=== PATIENT | male | born 1950 | race African-American/Black ===

== ENCOUNTER 2017-02-09 20:04 | Emergency (ER) | payer MEDICARE, OTHER ==
--- NOTE | ~2017-02-09 | CR20 ---
[facility] A Service of [facility] & [facility] RADIOLOGY TEXT RESULTS PATIENT: DANIEL MOCK LOCATION: [facility] : 49 UNIT #: [id number] AGE: [address]: Caitlin Correia MD SEX: M ORDER DR: [id number] [facility] [address] [facility]. [place], [place] [address] [id number] E MR#: [id number] Acc #: [id number] NAME: DANIEL MOCK : 1950 SEX: M STUDY DATE/TIME: 02/09/2017 21:28 UNIT: [facility] ROOM: STUDY DESCRIPTION: CR Ankle Min 3 Views Lt Attending Physician: Caitlin Correia M.D. Ordering Physician: Caitlin Correia M.D. Primary Care Physician: Ankush Castorena M.D. MEDICAL IMAGING REPORT This report is preliminary unless electronic signature is present EXAM Left ankle. DATE OF EXAM 02/09/2017 INDICATIONS Ankle pain since a fall today. FINDINGS 3 views of the left ankle were obtained. Arterial calcifications are noted in the soft tissues. Patient is osteopenic. There is some lateral soft tissue swelling. No acute fracture or malalignment is seen. The mortise is intact. IMPRESSION Osteopenia and atherosclerotic disease with some lateral soft tissue swelling. No acute fracture. Dictated by... Nicola Brice Jr., M.D. THIS IS AN ELECTRONICALLY VERIFIED REPORT Nicola Brice Jr., M.D. at 02/09/2017 11:06 PM TEMO/mohan TD: 02/09/2017 22:41 JOB #: [id number] MEDICAL IMAGING REPORT Page 1 of 1 COPY
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
--- NOTE | ~2017-02-09 | CT71 ---
[facility] A Service of [facility] RADIOLOGY TEXT RESULTS PATIENT: DANIEL MOCK LOCATION: [facility] : 49 UNIT #: [id number] AGE: [address]: Caitlin Correia MD SEX: M ORDER DR: [id number] [address] [address] [id number] E MR#: [id number] Acc #: [id number] NAME: DANIEL MOCK : 1950 SEX: M STUDY DATE/TIME: 02/09/2017 20:55 UNIT: [facility] ROOM: STUDY DESCRIPTION: CT Head Wo Contrast Attending Physician: Caitlin Correia M.D. Ordering Physician: Caitlin Correia M.D. Primary Care Physician: Ankush Castorena M.D. MEDICAL IMAGING REPORT This report is preliminary unless electronic signature is present EXAM Head CT. DATE OF EXAM 02/09/2017 INDICATIONS Head pain since last night after fall. History of hypertension and stroke. FINDINGS Axial images were obtained from base to vertex without contrast. COMPARISON Comparison made with 05/11/2014. TECHNIQUE This CT exam was performed with one or more of the following radiation dose reduction techniques: automatic exposure control, adjustment of mA and/or kV according to patient size, and iterative reconstruction. There is generalized atrophy. There is an old frontal white matter infarct on the right, and there are old right basal ganglia infarcts involving the caudate nucleus. Chronic small vessel ischemic changes are present in the white matter. There is no acute infarct or hemorrhage. There are no masses. No skull fracture. IMPRESSION No acute intracranial abnormality. No skull fractures. There are multiple right side old infarcts and there is generalized atrophy. Dictated by... Nicola Brice Jr., M.D. [facility] A Service of [facility] RADIOLOGY TEXT RESULTS PATIENT: DANIEL MOCK LOCATION: [facility] : 49 UNIT #: [id number] AGE: [address]: Caitlin Correia MD SEX: M ORDER DR: THIS IS AN ELECTRONICALLY VERIFIED REPORT Nicola Brice Jr., M.D. at 02/09/2017 11:06 PM TEMO/mohan TD: 02/09/2017 21:37 JOB #: [id number] MEDICAL IMAGING REPORT Page 1 of 1 COPY
--- NOTE | ~2017-02-09 | CR71 ---
[facility] A Service of [facility] & [facility] RADIOLOGY TEXT RESULTS PATIENT: DANIEL MOCK LOCATION: [facility] : 48 UNIT #: [id number] AGE: [address]: Caitlin Correia MD SEX: M ORDER DR: [id number] [facility] [address] [facility]. [place], [place] [address] [id number] E MR#: [id number] Acc #: [id number] NAME: DANIEL MOCK : 1950 SEX: M STUDY DATE/TIME: 02/09/2017 21:20 UNIT: [facility] ROOM: STUDY DESCRIPTION: CR Chest Single View Attending Physician: Caitlin Correia M.D. Ordering Physician: Caitlin Correia M.D. Primary Care Physician: Ankush Castorena M.D. MEDICAL IMAGING REPORT This report is preliminary unless electronic signature is present EXAM Portable chest. DATE OF EXAM 02/09/2017 HISTORY Shortness of breath, status post fall yesterday with chest pain and back pain left side. FINDINGS The cardiac and mediastinal structures are stable compared with 10/04/2016. Cardiac pacemaker is unchanged. Stable elevation of the right hemidiaphragm with atelectasis at the lung bases. There are no pleural effusions. No pneumothorax. IMPRESSION No active pulmonary disease. No change compared with 10/04/2016. Dictated by... Nasir Monteiro M.D. THIS IS AN ELECTRONICALLY VERIFIED REPORT Nasir Monteiro M.D. at 02/10/2017 2:21 PM Ravi TD: 02/09/2017 22:33 JOB #: [id number] MEDICAL IMAGING REPORT Page 1 of 1 COPY
[~2017-02-09 20:04] MED LIST: ALDACTONE PO; ALDACTONE25 MG PO; ALL DAY ALLERGY10 M2 PO; AMLODIPINE BESYL5 MG PO; ASPIRIN81 MG PO; BUMEX2 MG PO; CARVEDILOL25 MG PO; COUMADIN4 MG PO; COUMADIN5 MG PO; DESYREL150 M1 PO; ENTRESTO 24 MG1 EACH PO; FUROSEMIDE80 MG PO; GLUCOTROL10 MG PO; HYDROCODON-ACE1 EAC5 PO; NORVASC2.5 MG PO; PACERONE PO; PRILOSEC20 MG PO; PRINIVIL40 MG PO; SYNTHROID175 MCG PO; ZOCOR20 MG PO
[2017-02-09 20:25] LABS: BASOPHIL# 0.1 X10e3 (0-0.3); BASOPHIL% 0.8 % (0-2.5); EOSINOPHIL# 0.2 X10e3 (0-0.7); EOSINOPHIL% 2.3 % (0.0-7.0); HEMATOCRIT 35.6 % (38.0-50.0); HEMOGLOBIN 11.1 gm/dL (13.0-16.0); LYMPHOCYTE# 1.4 X10e3 (1.0-3.5); LYMPHOCYTE% 16.7 % (17.0-45.0); MEAN CELL VOLUME 69.9 FL (83-96); MEAN CORPUSCULAR HEMOGLOBIN 21.8 PG (28-34); MEAN CORPUSCULAR HGB CONC 31.1 g/dL (30-36); MEAN PLATELET VOLUME 8.4 FL (6.5-11.5); MONOCYTE# 0.9 X10e3 (0-1.0); MONOCYTE% 11.1 % (3.0-12.0); NEUTROPHIL# 5.6 X10e3 (1.5-7.1); NEUTROPHIL% 69.1 % (40-75); PLATELET COUNT 306 X10e3 (140-420); RED BLOOD COUNT 5.09 X10e (3.90-5.60); RED CELL DISTRIBUTION WIDTH 15.6 % (11.0-15.5); WHITE BLOOD COUNT 8.1 X10e3 (4.0-10.5)
[2017-02-09 20:30] LABS: DIFF IND NO
[2017-02-09 20:34] LABS: INR 1.6; PROTHROMBIN TIME (PATIENT) 17.6 SECONDS (9.6-11.5)
[2017-02-09 20:44] LABS: CALCIUM SERUM 9.1 mg/dL (8.4-10.2); CREATININE SERUM 0.8 mg/dL (0.6-1.4); GLOM FILT RATE Estimated 107.2 mL/min (>60); POTASSIUM 3.6 mmol/L (3.5-5.1)
== END 2017-02-09 22:21 | disposition home or self-care (01) ==
LOC: CED 20:04
PROVIDERS: Student in an Organized Health Care Education/Training Program
DX: S93.402A Sprain of unspecified ligament of left ankle, initial encounter (principal); S30.0XXA Contusion of lower back and pelvis, initial encounter; I50.9 Heart failure, unspecified; Z79.899 Other long term (current) drug therapy; Z79.82 Long term (current) use of aspirin; W18.30XA Fall on same level, unspecified, initial encounter; Y92.9 Unspecified place or not applicable
CPT/HCPCS: 36415; 70450; 71010; 72100; 73610; 80048; 85025; 85610; 99284

== ENCOUNTER 2017-03-02 21:12 | Inpatient (IN) | payer MEDICARE, OTHER ==
--- NOTE | ~2017-03-02 | EKG ---
PATIENT: DANIEL MOCK UNIT #: [id number] Ventricular Rate: 91 BPM Atrial Rate: 91 BPM P-R Interval: 200 ms QRS Duration: 112 ms Q-T Interval: 376 ms QTC Calculation(Bezet): 462 ms P [place]: 12 degrees Calculated R [place]: -11 degrees Calculated T [place]: 67 degrees Diagnosis Line: Normal sinus rhythm Diagnosis Line: Left atrial enlargement Diagnosis Line: ST and T wave abnormality, consider anterolateral Diagnosis Line: ischemia Diagnosis Line: Prolonged QT Diagnosis Line: Abnormal ECG Diagnosis Line: When compared with ECG of 02-MAR-2017 22:39, Diagnosis Line: (unconfirmed) Diagnosis Line: No significant change was found Diagnosis Line: Confirmed by CLAUDIA JAIN MD ([id number]) on 03/03/2017 Diagnosis Line: 6:05:04 PM INTERPRETING MD: CRISTOBAL WOOD
--- NOTE | ~2017-03-02 | CR72 ---
[facility] A Service of [facility] & [facility] RADIOLOGY TEXT RESULTS PATIENT: DANIEL MOCK LOCATION: [facility] : 49 UNIT #: [id number] AGE: [address]: Waldo Felix MD SEX: M ORDER DR: [id number] [facility] [address] [place], [place] [address] [id number] E MR#: [id number] Acc #: [id number] NAME: DANIEL MOCK : 1950 SEX: M STUDY DATE/TIME: 03/02/2017 22:25 UNIT: [facility] ROOM: STUDY DESCRIPTION: CR Chest Single View Portable Attending Physician: Waldo Felix M.D. Ordering Physician: Waldo Felix M.D. Primary Care Physician: Ankush Castorena M.D. MEDICAL IMAGING REPORT This report is preliminary unless electronic signature is present EXAM Portable chest. HISTORY Shortness of air, CHF and cough for 2 weeks. FINDINGS Moderate right basilar infiltrate or atelectasis is new compared to 02/09/2017. There may also be a new small right pleural effusion. Stable elevation of the right hemidiaphragm. Cardiac size and pulmonary vascularity are normal. No new infiltrates on the left. Dictated by... Charles Riley M.D. THIS IS AN ELECTRONICALLY VERIFIED REPORT Charles Riley M.D. at 03/02/2017 11:23 PM SHEYLA/mohan TD: 03/02/2017 23:19 JOB #: [id number] MEDICAL IMAGING REPORT Page 1 of 1 COPY
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
--- NOTE | ~2017-03-02 | EKG ---
PATIENT: DANIEL MOCK UNIT #: [id number] Ventricular Rate: 84 BPM Atrial Rate: 84 BPM P-R Interval: 186 ms QRS Duration: 126 ms Q-T Interval: 418 ms QTC Calculation(Bezet): 493 ms P [place]: 11 degrees Calculated R [place]: 7 degrees Calculated T [place]: 52 degrees Diagnosis Line: Normal sinus rhythm Diagnosis Line: Possible Left atrial enlargement Diagnosis Line: Non-specific intra-ventricular conduction block Diagnosis Line: T wave abnormality, consider anterolateral Diagnosis Line: ischemia Diagnosis Line: Abnormal ECG Diagnosis Line: When compared with ECG of 03-MAR-2017 07:31, Diagnosis Line: Premature ventricular complexes are no longer Diagnosis Line: Present Diagnosis Line: Confirmed by DIDI ROSSI MD ([id number]) on Diagnosis Line: 03/08/2017 5:12:35 PM INTERPRETING MD: ANGELICA
--- NOTE | ~2017-03-02 | EKG ---
PATIENT: DANIEL MOCK UNIT #: [id number] Ventricular Rate: 93 BPM Atrial Rate: 93 BPM P-R Interval: 190 ms QRS Duration: 114 ms Q-T Interval: 380 ms QTC Calculation(Bezet): 472 ms P [place]: 9 degrees Calculated R [place]: 2 degrees Calculated T [place]: 100 degrees Diagnosis Line: Sinus rhythm with frequent Premature ventricular Diagnosis Line: complexes Diagnosis Line: ST and T wave abnormality, consider lateral ischemia Diagnosis Line: Prolonged QT Diagnosis Line: Abnormal ECG Diagnosis Line: When compared with ECG of 02-MAR-2017 22:41, Diagnosis Line: (unconfirmed) Diagnosis Line: Premature ventricular complexes are now Present Diagnosis Line: Confirmed by CLAUDIA JAIN MD ([id number]) on 03/03/2017 Diagnosis Line: 6:08:31 PM INTERPRETING MD: CRISTOBAL WOOD
--- NOTE | ~2017-03-02 | HP ---
Unit #: [id number] #: [id number] Patient: DANIEL MOCK [id number] [address] [address] [id number] I MR#: [id number] NAME: DANIEL MOCK ROOM: 553 Age: 66 Sex: M Admission Date: 03/03/2017 : 1950 Attending Physician: Ervin Quiroga M.D. Primary Care Physician: Ankush Castorena M.D. HISTORY AND PHYSICAL CHIEF COMPLAINT Dyspnea. HISTORY OF PRESENT ILLNESS The patient is a 66-year-old male known to Dr. Gallagher. The patient had a two-dimensional echocardiogram in 2013 which showed an ejection fraction of 30%. The patient denies a history of myocardial infarction. Past medical history includes chronic systolic congestive heart failure, ischemic cardiomyopathy, atrial fibrillation/sick sinus syndrome status post Medtronic atrial implantable cardioverter defibrillator in 2003, hypertension, hyperlipidemia, carotid stenosis with history of right carotid endarterectomy, CVA/TIA on Coumadin, diabetes, hypotension, gastroesophageal reflux disease and reformed tobaccoism. The patient reports that for the past two days he has becoming increasingly short of breath. The patient gets short of breath at rest and with activity. He denies any chest pain. The patient reports that he does sleep on two pillows at night. He does report a productive cough with white sputum. The patient states that last night he woke up out of his sleep short of breath. At that time he decided he needed to come to the emergency room for further evaluation. In the emergency department the patient's BNP was 979, INR 1.3 and troponin was 0.04. Chest x-ray shows findings consistent with moderate right basilar infiltrate or atelectasis, small right pleural effusion. The patient has been admitted for further workup. PAST MEDICAL HISTORY 1. Ischemic cardiomyopathy with an ejection fraction of 30% per echo in 2013. 2. Medtronic atrial implantable cardioverter defibrillator placed in 2003. 3. CVA/TIA in 2001 on Coumadin therapy. 4. Chronic systolic congestive heart failure. 5. Hypertension. 6. Hyperlipidemia. 7. Diabetes type 2. 8. Gastroesophageal reflux disease. 9. Atrial fibrillation. 10. Carotid stenosis. PAST SURGICAL HISTORY 1. Hernia repair. 2. Atrial implantable cardioverter defibrillator placement. Unit #: [id number] #: [id number] Patient: DANIEL MOCK 3. Right carotid endarterectomy. SOCIAL HISTORY The patient denies tobacco, alcohol or illicit drug abuse. He states he has quit smoking. He is on disability. He retired in 2006 from the [employer]. FAMILY HISTORY The patient reports that his father had a myocardial infarction and at the age of 57. ALLERGIES No known drug allergies. HOME MEDICATIONS 1. Metformin 1000 mg p.o. b.i.d. 2. Neurontin 1,200 mg p.o. t.i.d. 3. Cozaar 50 mg p.o. daily. 4. Synthroid 0.2 mg p.o. daily. 5. Glipizide 5 mg p.o. daily. 6. Amitriptyline 25 mg p.o. daily. 7. Aldactone 12.5 mg p.o. daily. 8. Iron 325 mg p.o. t.i.d. 9. Coreg 25 mg p.o. b.i.d. 10. Simvastatin 40 mg p.o. daily. 11. Coumadin 4 mg p.o. daily. 12. Zoloft 50 mg p.o. daily. 13. Prilosec 40 mg p.o. b.i.d. 14. Lipitor 10 mg p.o. daily. REVIEW OF SYSTEMS A 10-point review of systems has been done and is negative other than that indicated in the history of present illness. PHYSICAL EXAMINATION GENERAL: The patient is awake, alert and in no acute distress. VITALS: Temperature 98, heart rate 92, respiratory rate 21, blood pressure 143/95, oxygenating 100% on 2 liters nasal cannula. He is 266 pounds. HEENT: Head is atraumatic, normocephalic. Pupils equal, round and reactive. Extraocular movements are intact. No drainage from ears or nares. NECK: Supple. Trachea midline. Positive jugular venous distension. No lymphadenopathy or thyromegaly is appreciated. LUNGS: Diminished on the left and crackles on the right. No wheezes. HEART: S1 and S2. Regular rate and rhythm. No murmurs, rubs or gallops appreciated. ABDOMEN: Soft, nontender and nondistended. Bowel sounds are positive in all four quadrants. SKIN: Skin appears to be warm, dry and intact with no rashes or lesions. EXTREMITIES: No clubbing or cyanosis. The patient has Plus 1-2 bilateral lower extremity edema. NEUROLOGIC: The patient is alert and oriented times three. He is pleasant and conversant. No focal deficits. DIAGNOSTIC STUDIES IMAGING: Chest x-ray shows moderate right bibasilar infiltrate or atelectasis, small right pleural effusion. Unit #: [id number] #: [id number] Patient: DANIEL MOCK LABORATORY: White blood cell count 9, hemoglobin 10, hematocrit 32.2, platelets 318, sodium 139, potassium 4.4, chloride 106, CO2 23, BUN 16, creatinine 0.9, glucose 128, INR 1.3. Troponin is 0.04. BNP is 979. CARDIOVASCULAR: EKG shows normal sinus rhythm. ASSESSMENT 1. Acute on chronic systolic congestive heart failure with an left ventricular ejection fraction of 30% from 2013. 2. Ischemic cardiomyopathy. 3. Atrial fibrillation/sick sinus syndrome, status post Medtronic atrial implantable cardioverter defibrillator in 2003. 4. Hypertension. 5. Hyperlipidemia. 6. Chronic stenosis with history of endarterectomy. 7. CVA/TIA on Coumadin. 8. Diabetes type 2. 9. Hypothyroidism. 10. Gastroesophageal reflux disease. 11. Reformed tobaccoism. 12. Anemia. 13. Possible obstructive sleep apnea. PLAN At this time we will start the patient on a low-sodium diet/diabetic diet. Will place the patient on a 1500 mL fluid restriction. Will ask the nurses to do strict ins and outs and daily weights. We will have Medtr[employer] interrogate the patient's pacemaker. Will start the patient on Entresto 24/26 mg p.o. b.i.d. Will do INRs daily. Will check a BMP and magnesium in the morning. Will ask for there to be a two-dimensional echocardiogram to evaluate ejection fraction and valvular function. Will check a TSH. Will do an EKG in the morning. Will start the patient on Bumex 2 mg IV b.i.d. Today the patient's weight was 266 pounds. Will monitor for daily weight loss. Dr. Gallagher will see the patient. Dictated by Oswald Painter TD: 03/03/2017 09:25 JOB #: [id number] HISTORY AND PHYSICAL Page 1 of 1 X Mary Jane Horta APRN X HISTORY AND PHYSICAL
--- NOTE | ~2017-03-02 | CO ---
Unit #: [id number] #: [id number] Patient: DANIEL MOCK [id number] [address] [address] [id number] I MR#: [id number] NAME: DANIEL MOCK ROOM: 553 Age: 66 Sex: M Admission Date: 03/03/2017 : 1950 Attending Physician: Ervin Quiroga M.D. Primary Care Physician: Ankush Castorena M.D. CONSULTATION REPORT REASON FOR CONSULTATION Shortness of breath and sleep apnea. HISTORY OF PRESENT ILLNESS This 66-year-old male with past medical history of ischemic cardiomyopathy, status post cardiac defibrillator, stroke, hypertension, diabetes, gastroesophageal reflux disease, atrial fibrillation presents with complaint of shortness of breath. Admitted with CHF exacerbation and is found to have atrial fibrillation. Currently on anticoagulation. Patient complaining of daytime fatigue, sleepiness, loud snoring, witnessed apnea. REVIEW OF SYSTEMS Positive pallor. No edema. No cyanosis. No jaundice. Rest is as per history of present illness. PAST MEDICAL HISTORY 1. Ischemic cardiomyopathy. 2. Status post defibrillator. 3. Chronic systolic congestive heart failure. 4. Hypertension. 5. Dyslipidemia. 6. Diabetes mellitus. 7. Gastroesophageal reflux disease. 8. Atrial fibrillation. 9. Carotid stenosis. SURGICAL HISTORY 1. Hernia repair. 2. Implantable defibrillator. 3. Right carotid endarterectomy. SOCIAL HISTORY Nonsmoker. No alcohol. No drug abuse. FAMILY HISTORY None as per records. MEDICATIONS Metformin, Neurontin, Cozaar, Synthroid, glipizide, amitriptyline, Aldactone, Coreg, Coumadin, Zoloft, Prilosec, Lipitor. ASSESSMENT 1. Likely obstructive sleep apnea. Unit #: [id number] #: [id number] Patient: DANIEL MOCK 2. Ischemic cardiomyopathy. 3. Atrial fibrillation. 4. CHF exacerbation. 5. Questionable right lower lobe infiltrate. PLAN Plan is to continue patient on oxygen, bronchodilator, diuretics and get a procalcitonin level. Noncontrast CT of the chest. Will schedule him for sleep study as an outpatient. Patient will be closely monitored. Please see orders for detailed plan. Thank you very much for this consultation. Dictated by... SaNhan Britt/fátima TD: 03/04/2017 17:01 JOB #: [id number] CONSULTATION REPORT Page 1 of 1 X Marzena Son MD CONSULTATION REPORT
--- NOTE | ~2017-03-02 | DS ---
Unit #: [id number] #: [id number] Patient: DANIEL MOCK [id number] [facility]. [address] [address] [id number] I MR#: [id number] NAME: DANIEL MOCK ROOM: 553 Age: 66 Sex: M Admission Date: 03/03/2017 : 1950 Discharge Date: 03/05/2017 Attending Physician: Ervin Quiroga M.D. Primary Care Physician: Ankush Castorena M.D. DISCHARGE SUMMARY DISCHARGE DIAGNOSES 1. Acute on chronic systolic heart failure with reduced ejection fraction of 15%-20%. 2. Two-dimensional echocardiogram 03/04/2017 showing ejection fraction of 15%-20%, with mild to moderately dilated left atrium. Moderately dilated right ventricle. Mild mitral regurgitation and mild to moderate tricuspid regurgitation. Right ventricular systolic pressure 43 mmHg. 3. Hypotension, resolved. 4. History of hypertension. 5. Nonsustained ventricular tachycardia. 6. Cardiomyopathy status post atrial implantable cardioverter defibrillator in 2003. 7. Diabetes mellitus type 2. 8. History of cerebrovascular accident/TIA on anticoagulation with Coumadin. 9. Chronic stenosis with a history of endarterectomy. 10. Anemia. 11. Reformed smoker. 12. Obstructive sleep apnea. DISCHARGE MEDICATIONS 1. Entresto 24/26 mg b.i.d. 2. Warfarin 4 mg daily. 3. Neurontin 1200 mg t.i.d. 4. Amitriptyline 25 mg daily. 5. Zoloft 50 mg daily. 6. Glucophage 1000 mg b.i.d. 7. Carvedilol 12.5 mg b.i.d. 8. Bumex 1 mg b.i.d. 9. Lipitor 10 mg daily. 10. Simvastatin 40 mg at nighttime. 11. Ferrous sulfate 325 mg t.i.d. 12. Spironolactone 12.5 mg daily. 13. Prilosec 40 mg b.i.d. 14. Glucotrol 5 mg daily. 15. Synthroid 0.2 mg daily. HOSPITAL COURSE This is a 66-year-old male known to Drs. Gallagher/Samir, who came to the emergency room with the complaint of dyspnea. He was admitted with njyfn-ow-zlftwwo systolic heart failure. He has known cardiomyopathy with an ejection fraction per echocardiogram of 15%-20%. Previous ejection fraction was around 30%. The patient has atrial Unit #: [id number] #: [id number] Patient: DANIEL MOCK implantable cardioverter defibrillator implanted. BNP was elevated at 979. He was diuresed with IV diuretics. Myocardial infarction was ruled out with negative cardiac enzymes and troponin. He was started on Entresto during his hospitalization for cardiomyopathy. He had a 12-beat run of nonsustained ventricular tachycardia during his stay. There were no repeat episodes. No discharge of his AICD. Today he was hypotensive with blood pressure of 75/58 mmHg. He ambulated in the hallway without any difficulties. His blood pressure improved to 113/64 mmHg. His dyspnea has resolved. The patient's AICD was interrogated, which showed no report of fluid accumulation since 02/18/2017. His device was functioning normal. No discharge of his AICD. Dr. Son was asked to see the patient for an evaluation of dyspnea. He suspected the patient had obstructive sleep apnea. He was placed on BiPAP at night. CT of his chest without contrast ruled out pneumonia. Duo-Nebs were ordered. Walking oximetry shows O2 saturations of 93%. He felt the patient's dyspnea was secondary to congestive heart failure. Overnight oximetry showed heart rate range of 67 to 106 with SPO2 66-99, average 89.9. Today the patient is doing well. His blood pressure has recovered. He is on Coumadin because of a history of cerebrovascular accident in the past. His INR on admission was 1.3, which is unchanged. He will receive 7.5 mg of Coumadin prior to discharge. Cardiac rehab consult will be done also prior to discharge. He is stable for discharge today. PHYSICAL EXAMINATION VITALS: Blood pressure 113/64, heart rate 92, temperature 97.8. CHEST: Clear to auscultation with diminished breath sounds. HEART: S1 and S2. Regular rate and rhythm. ABDOMEN: Soft with positive bowel sounds. EXTREMITIES: Without edema. DIAGNOSTIC DATA LABORATORY: Glucose 142, BUN 13, creatinine 1.0, sodium 135, potassium 3.9, hemoglobin A1c 8.1. Cholesterol 98, triglycerides 90, LDL 52, HDL 28. TSH 0.73. Procalcitonin 0.05. Pro time 13.4, INR 1.3, white blood cell count 6.7, hemoglobin 11.2, hematocrit 36.4, platelets 330. IMAGING: CT of the chest without contrast shows very small right pleural effusion and probable passive right middle lobe and right lower lobe atelectasis. Moderate asymmetric elevation of the right hemidiaphragm. Mild cardiomegaly. Coronary artery calcifications. Left renal cyst. DISPOSITION The patient will be discharged home today. FOLLOWUP 1. Follow up with Dr. Gallagher in four weeks. 2. Follow up with primary care physician in two weeks. DIET Two gram sodium, consistent carb diet with 1800 cc fluid restriction. ACTIVITY As tolerated. The cost of Entresto was $47 for the patient. He had used his first month Unit #: [id number] #: [id number] Patient: DANIEL MOCK free card in the past. He has been supplied with one month samples from the office. He has a prescription for subsequent refills. The patient has been given prescription for Bumex and Carvedilol. Encouraged the patient to follow fluid and dietary restrictions. Cardiac rehab consult. Dictated by... Yfn Johnson A.P.R.N. for Nhan Platt/radha TD: 03/07/2017 08:03 JOB #: [id number] DISCHARGE SUMMARY Page 1 of 1 X Yfn Johnson APRN X DISCHARGE SUMMARY
[2017-03-02 22:35] LABS: BASOPHIL# 0.1 X10e3 (0-0.3); BASOPHIL% 1.2 % (0-2.5); EOSINOPHIL# 0.3 X10e3 (0-0.7); EOSINOPHIL% 3.6 % (0.0-7.0); HEMATOCRIT 32.2 % (38.0-50.0); LYMPHOCYTE# 1.6 X10e3 (1.0-3.5); LYMPHOCYTE% 18.1 % (17.0-45.0); MEAN CELL VOLUME 69.5 FL (83-96); MEAN CORPUSCULAR HEMOGLOBIN 21.4 PG (28-34); MEAN CORPUSCULAR HGB CONC 30.9 g/dL (30-36); MEAN PLATELET VOLUME 7.9 FL (6.5-11.5); MONOCYTE% 11.5 % (3.0-12.0); NEUTROPHIL# 5.9 X10e3 (1.5-7.1); NEUTROPHIL% 65.6 % (40-75); PLATELET COUNT 318 X10e3 (140-420); RED BLOOD COUNT 4.64 X10e (3.90-5.60); RED CELL DISTRIBUTION WIDTH 15.8 % (11.0-15.5)
[2017-03-02 22:36] LABS: DIFF IND NO
[2017-03-02 22:48] LABS: INR 1.3; PARTIAL THROMBOPLASTIN TIME 30.3 SECONDS (23.5-31.3)
[2017-03-02 23:08] LABS: ALBUMIN SERUM 4.1 g/dL (3.5-5.0); BILIRUBIN, DIRECT 0.1 mg/dL (0.0-0.2); BILIRUBIN,TOTAL 0.1 mg/dL (0.2-2.0); BUN/CREATININE RATIO 17.77; CALCIUM SERUM 9.6 mg/dL (8.4-10.2); CREATININE SERUM 0.9 mg/dL (0.6-1.4); GLOM FILT RATE Estimated 102.1 mL/min (>60); POTASSIUM 4.4 mmol/L (3.5-5.1); PROTEIN TOTAL SERUM 7.1 g/dL (6.0-8.3)
[2017-03-03] MEDS ORDERED: GLUCOPHAGE500 MG PO (00:40)
[2017-03-03] MEDS ORDERED: NEURONTIN600 MG PO (00:41)
[2017-03-03] MEDS ORDERED: COZAAR25 MG PO (00:42)
[2017-03-03] MEDS ORDERED: GLUCOTROL PO (00:43)
[2017-03-03] MEDS ORDERED: SYNTHROID0.2 MG PO (00:43)
[2017-03-03] MEDS ORDERED: AMITRIPTYLINE H25 MG PO (00:43)
[2017-03-03] MEDS ORDERED: IRON325 MG PO (00:44)
[2017-03-03] MEDS ORDERED: ALDACTONE PO (00:44)
[2017-03-03] MEDS ORDERED: CARVEDILOL25 MG PO (00:45)
[2017-03-03] MEDS ORDERED: COUMADIN4 MG PO (00:45)
[2017-03-03] MEDS ORDERED: SIMVASTATIN40 MG PO (00:45)
[2017-03-03] MEDS ORDERED: PRILOSEC PO (00:46)
[2017-03-03] MEDS ORDERED: LIPITOR PO (00:46)
[2017-03-03] MEDS ORDERED: ZOLOFT50 MG PO (00:46)
[2017-03-03 10:23] LABS: BASOPHIL# 0.1 X10e3 (0-0.3); BASOPHIL% 0.8 % (0-2.5); EOSINOPHIL# 0.3 X10e3 (0-0.7); EOSINOPHIL% 4.4 % (0.0-7.0); HEMATOCRIT 33.3 % (38.0-50.0); HEMOGLOBIN 10.1 gm/dL (13.0-16.0); LYMPHOCYTE# 1.9 X10e3 (1.0-3.5); LYMPHOCYTE% 24.2 % (17.0-45.0); MEAN CELL VOLUME 69.8 FL (83-96); MEAN CORPUSCULAR HEMOGLOBIN 21.3 PG (28-34); MEAN CORPUSCULAR HGB CONC 30.5 g/dL (30-36); MONOCYTE# 0.9 X10e3 (0-1.0); MONOCYTE% 11.3 % (3.0-12.0); NEUTROPHIL# 4.7 X10e3 (1.5-7.1); NEUTROPHIL% 59.3 % (40-75); PLATELET COUNT 304 X10e3 (140-420); RED BLOOD COUNT 4.77 X10e (3.90-5.60); RED CELL DISTRIBUTION WIDTH 15.8 % (11.0-15.5); WHITE BLOOD COUNT 7.9 X10e3 (4.0-10.5)
[2017-03-03 10:26] LABS: DIFF IND NO
[2017-03-03 10:44] LABS: INR 1.2; PARTIAL THROMBOPLASTIN TIME 29.8 SECONDS (23.5-31.3); PROTHROMBIN TIME (PATIENT) 12.7 SECONDS (9.6-11.5)
[2017-03-03 11:30] LABS: BUN/CREATININE RATIO 15.55; CREATININE SERUM 0.9 mg/dL (0.6-1.4); GLOM FILT RATE Estimated 102.1 mL/min (>60); MAGNESIUM 1.5 mg/dL (1.6-3.0)
[2017-03-04 06:32] LABS: BASOPHIL# 0.1 X10e3 (0-0.3); BASOPHIL% 1.1 % (0-2.5); EOSINOPHIL# 0.3 X10e3 (0-0.7); EOSINOPHIL% 4.5 % (0.0-7.0); HEMATOCRIT 36.4 % (38.0-50.0); HEMOGLOBIN 11.2 gm/dL (13.0-16.0); LYMPHOCYTE# 1.6 X10e3 (1.0-3.5); LYMPHOCYTE% 23.7 % (17.0-45.0); MEAN CELL VOLUME 69.4 FL (83-96); MEAN CORPUSCULAR HEMOGLOBIN 21.3 PG (28-34); MEAN CORPUSCULAR HGB CONC 30.7 g/dL (30-36); MEAN PLATELET VOLUME 8.2 FL (6.5-11.5); MONOCYTE# 0.8 X10e3 (0-1.0); MONOCYTE% 12.3 % (3.0-12.0); NEUTROPHIL# 3.9 X10e3 (1.5-7.1); NEUTROPHIL% 58.4 % (40-75); PLATELET COUNT 330 X10e3 (140-420); RED BLOOD COUNT 5.25 X10e (3.90-5.60); RED CELL DISTRIBUTION WIDTH 15.5 % (11.0-15.5); WHITE BLOOD COUNT 6.7 X10e3 (4.0-10.5)
[2017-03-04 06:33] LABS: DIFF IND NO
[2017-03-04 06:47] LABS: INR 1.2; PARTIAL THROMBOPLASTIN TIME 29.1 SECONDS (23.5-31.3); PROTHROMBIN TIME (PATIENT) 12.5 SECONDS (9.6-11.5)
[2017-03-04 07:13] LABS: CALCIUM SERUM 8.9 mg/dL (8.4-10.2); GLOM FILT RATE Estimated 89.9 mL/min (>60); MAGNESIUM 1.7 mg/dL (1.6-3.0); POTASSIUM 3.9 mmol/L (3.5-5.1)
[2017-03-05 06:44] LABS: INR 1.3; PROTHROMBIN TIME (PATIENT) 13.4 SECONDS (9.6-11.5)
[2017-03-05 06:58] LABS: CALCIUM SERUM 8.5 mg/dL (8.4-10.2); GLOM FILT RATE Estimated 89.9 mL/min (>60); MAGNESIUM 1.8 mg/dL (1.6-3.0); POTASSIUM 3.9 mmol/L (3.5-5.1)
[2017-03-05] MEDS ORDERED: BUMEX1 MG PO (14:38)
[2017-03-05] MEDS ORDERED: ENTRESTO 24 MG1 EACH PO (14:39)
== END 2017-03-05 18:45 | disposition home or self-care (01) | DRG 292 ==
LOC: CED 21:12 → CEDOF 03-03 00:20 → C5B 03-03 00:20 → C5C 03-03 02:57 → C5B 03-03 03:22
PROVIDERS: Emergency Medicine; Internal Medicine Cardiovascular Disease; Nurse Practitioner
PROC: B24BZZZ Ultrasonography of Heart with Aorta (ICD-10-PCS; principal; 2017-03-04)
DX: I11.0 Hypertensive heart disease with heart failure (principal); I47.2 Ventricular tachycardia; I95.9 Hypotension, unspecified; I08.1 Rheumatic disorders of both mitral and tricuspid valves; I48.91 Unspecified atrial fibrillation; Z79.01 Long term (current) use of anticoagulants; E11.9 Type 2 diabetes mellitus without complications; D64.9 Anemia, unspecified; E03.9 Hypothyroidism, unspecified; I50.23 Acute on chronic systolic (congestive) heart failure; Z87.891 Personal history of nicotine dependence; I25.5 Ischemic cardiomyopathy; Z79.84 Long term (current) use of oral hypoglycemic drugs; Z86.73 Personal history of transient ischemic attack (TIA), and cerebral infarction without residual deficits; G47.33 Obstructive sleep apnea (adult) (pediatric); Z95.810 Presence of automatic (implantable) cardiac defibrillator; E78.5 Hyperlipidemia, unspecified; K21.9 Gastro-esophageal reflux disease without esophagitis; Z82.49 Family history of ischemic heart disease and other diseases of the circulatory system
CPT/HCPCS: 36415; 71010; 71250; 80048; 80061; 80076; 82308; 82947; 83036; 83735; 83880; 84443; 84484; 85025; 85610; 85730; 93005; 93306; 94660; 94762; 96374; 99285; J1650; J1815; J1940; J2405; J3475

== ENCOUNTER 2017-03-10 23:07 | Inpatient (IN) | payer MEDICARE, OTHER ==
--- NOTE | ~2017-03-10 | CR123 ---
[facility] A Service of [facility] & [facility] RADIOLOGY TEXT RESULTS PATIENT: DANIEL MOCK LOCATION: [facility] 313-01 : [birth year] UNIT #: [id number] AGE: [address]: PARVEEN PEDROZA SEX: M ORDER DR: [id number] [facility] [address] [facility]. [place], [place] [address] [id number] I MR#: [id number] Acc #: [id number] NAME: DANIEL MOCK : 1950 SEX: M STUDY DATE/TIME: 03/11/2017 15:04 UNIT: [address] ROOM: [facility] STUDY DESCRIPTION: CR Foot 2 Views Lt Attending Physician: Parveen Pedroza M.D. Ordering Physician: Dai Peoples A.P.R.N. Primary Care Physician: Ankush Castorena M.D. MEDICAL IMAGING REPORT This report is preliminary unless electronic signature is present EXAM Left foot HISTORY Left foot pain for a month. COMPARISON STUDIES None. FINDINGS Three views of the left foot were obtained. There is mild degenerative change at the first metatarsophalangeal joint. There is no fracture identified. Study is otherwise normal. IMPRESSION Mild degenerative change first MTP joint, otherwise normal. Dictated by... Ken Delatorre M.D. THIS IS AN ELECTRONICALLY VERIFIED REPORT Ken Delatorre M.D. at 03/12/2017 6:06 AM FEL/pcl TD: 03/11/2017 22:06 JOB #: [id number] MEDICAL IMAGING REPORT Page 1 of 1 COPY
--- NOTE | ~2017-03-10 | DS ---
Unit #: [id number] #: [id number] Patient: DANIEL MOCK [id number] [facility]. [place], [place] [address] [id number] MR#: [id number] NAME: DANIEL MOCK ROOM: 313 Age: 66 Sex: M Admission Date: 03/11/2017 : 1950 Discharge Date: 03/15/2017 Attending Physician: Parveen Pedroza M.D. Primary Care Physician: Ankush Castorena M.D. DISCHARGE SUMMARY HOSPITAL COURSE Patient was admitted to [facility] on 03/10/17 with complaints of lower extremity swelling and shortness of breath. Patient had been discharged just a few days prior to this admission and represented with the same symptoms. Patient was started on IV diuretics with Bumex 2 mg twice a day and placed on a fluid restriction as well as a low sodium diet. Patient was diuresed very well and has been transitioned over to p.o. Bumex twice a day. There was a pulmonary consult for possible sleep apnea and Dr. Son consulted on the patient and is planning to follow up in the clinic outpatient in two weeks. Patient does have ischemic cardiomyopathy with an EF of 15% to 20% where he has had a history of an AICD placed. Patient has been started on Coreg here in the hospital for his history of nonsustained V tach as well as his low EF. Patient has history of TIA and CVA. Therefore, he has been on chronic Coumadin therapy, which he has monitored at the [facility]. Patient will be discharged on Coumadin at 7.5 mg for 3 days and then 5 mg daily. He will have his INR checked on Tuesday, 03/21, as well as a [facility] and [facility] to monitor his electrolytes on the Bumex therapy. Patient is being discharged on p.o. potassium supplements, which he will take with his Bumex doses. Discussed in detail the prescriptions changes that were made with the patient as well as home care and followup in the office with Dr. Dawson as well as his lab monitoring. Patient verbalized understanding of all of the above. DISCHARGE VITALS Blood pressure 118/88, temp 97.3, heart rate 98, and respirations 16. DIAGNOSTIC STUDIES LABORATORY: Labs on day of discharge are: INR of 1.2. Sodium 134, potassium 4.3, chloride 100, CO2 23, glucose is 93, BUN 23, creatinine 1.3, and mag 1.9. PHYSICAL EXAMINATION GENERAL: This is a 66-year-old, -[place] male who is alert and oriented x3 in no apparent distress. NECK: No JVD. No thyromegaly. No lymphadenopathy. No carotid bruits. HEART: S1 and S2. No S3, S4. No clicks. No rubs. No murmurs. Regular rate and rhythm. LUNGS: Clear. ABDOMEN: Soft. Bowel sounds positive. Nontender and nondistended. EXTREMITIES: No swelling. NEUROLOGICAL: No new deficits noted. DISCHARGE MEDICATIONS Discharge medications include: Unit #: [id number] #: [id number] Patient: DANIEL MOCK 1. Entresto one tab p.o. twice a day. 2. Coumadin 7.5 mg x3 days and then 5 mg daily. 3. Gabapentin 1200 mg p.o. 3 times a day. 4. Amitriptyline 25 mg p.o. daily. 5. Zoloft 50 mg p.o. daily. 6. Metformin 1000 mg p.o. twice a day. 7. Coreg 6.25 mg p.o. twice a day. 8. Bumex 2 mg p.o. twice a day. 9. Lipitor 2 mg p.o. at bedtime. 10. Iron 325 mg p.o. 3 times a day. 11. Aldactone 25 mg p.o. daily. 12. Prilosec 40 mg p.o. twice a day. 13. Potassium 20 mEq p.o. twice a day. 14. Glipizide 5 mg p.o. daily. 15. Synthroid 0.2 mg p.o. daily. ALLERGIES Include no known drug allergies. DISCHARGE PLANS 1. Patient will be discharged home today on potassium supplements with the Bumex increased dose twice a day as well as an increase in his Aldactone dose. 2. Patient will also go home on Coreg twice a day as well as Coumadin at an increased dose. 3. Patient will have PT/INR and BMP and mag drawn on Tuesday at the [facility] where he normally gets his lab work drawn and they monitor his coags as well as his electrolytes. 4. Patient will also follow up with Dr. Dawson in 4-6 weeks. 5. Patient will follow up with Dr. Son in two weeks. 6. Patient was also educated on fluid restriction of 2 liters or less a day in a 24-hour period. Patient verbalized understanding. 7. Patient was also educated by the dietitian on low salt, healthy heart diet and he verbalized understanding of the dietary plan once he is to return home. DISCHARGE CONDITION Stable. DISCHARGE DISPOSITION Home. Dictated by... Neli Staley APRN for Nhan Zamora TD: 03/16/2017 09:36 JOB #: [id number] Unit #: [id number] #: [id number] Patient: DANIEL MOCK DISCHARGE SUMMARY Page 1 of 1 X X DISCHARGE SUMMARY
--- NOTE | ~2017-03-10 | CR63 ---
[facility] A Service of [facility] & [facility] RADIOLOGY TEXT RESULTS PATIENT: DANIEL MOCK LOCATION: [facility] 313-01 : [birth year] UNIT #: [id number] AGE: [address]: PARVEEN PEDROZA SEX: M ORDER DR: [id number] [facility] [address] [place], [place] [address] [id number] MR#: [id number] Acc #: [id number] NAME: DANIEL MOCK : 1950 SEX: M STUDY DATE/TIME: 03/12/2017 15:00 [facility]IT: [facility] ROOM: [facility] STUDY DESCRIPTION: CR Chest 2 View Attending Physician: Parveen Pedroza M.D. Ordering Physician: Grecia Iniguez A.P.R.N. Primary Care Physician: Ankush Castorena M.D. MEDICAL IMAGING REPORT This report is preliminary unless electronic signature is present EXAM PA and lateral chest HISTORY Cough and lower extremity swelling and chest pain today. FINDINGS 2 views of the chest demonstrate interval clearing of the right lung base and retrocardiac left lower lobe compared to 03/02/2017. Persistent trace right pleural effusion. No new infiltrates. Low lung volumes with moderate elevation of the right hemidiaphragm. Cardiac size and pulmonary vascularity are within normal limits. Remainder of the chest is stable. IMPRESSION 1. Interval clearing of the bibasilar infiltrates or atelectasis compared to 03/02/2017. 2. Persistent trace right pleural effusion. 3. Stable moderate elevation of the right hemidiaphragm. Dictated by... Charles Riley M.D. THIS IS AN ELECTRONICALLY VERIFIED REPORT Charles Riley M.D. at 03/13/2017 10:31 PM DFL/pcl TD: 03/13/2017 00:18 JOB #: [id number] MEDICAL IMAGING REPORT Page 1 of 1 COPY
--- NOTE | ~2017-03-10 | CR17 ---
[facility] A Service of [facility] RADIOLOGY TEXT RESULTS PATIENT: DANIEL MOCK LOCATION: [facility] : [birth year] UNIT #: [id number] AGE: [address]: PARVEEN PEDROZA SEX: M ORDER DR: [id number] [facility]. [place], [place] [address] [id number] I MR#: [id number] Acc #: [id number] NAME: DANIEL MOCK : 1950 SEX: M STUDY DATE/TIME: 03/11/2017 15:03 UNIT: [facility] ROOM: [facility] STUDY DESCRIPTION: CR Ankle 2 Views Lt Attending Physician: Parveen Pedroza M.D. Ordering Physician: Dai Peoples A.P.R.N. Primary Care Physician: Ankush Castorena M.D. MEDICAL IMAGING REPORT This report is preliminary unless electronic signature is present EXAM Left ankle HISTORY Left ankle pain and swelling for 1 month. COMPARISON STUDIES 02/09/2017. TECHNIQUE Three views of the left ankle were obtained. FINDINGS There is lateral soft tissue swelling. There is no fracture visible. Arterial calcifications are noted. IMPRESSION Lateral soft tissue swelling, otherwise normal. Dictated by... Ken Delatorre M.D. THIS IS AN ELECTRONICALLY VERIFIED REPORT Ken Delatorre M.D. at 03/12/2017 6:06 AM FEL/pcl TD: 03/11/2017 22:04 JOB #: [id number] MEDICAL IMAGING REPORT [facility] A Service of [facility] RADIOLOGY TEXT RESULTS PATIENT: DANIEL MOCK LOCATION: [facility] : [birth year] UNIT #: [id number] AGE: [address]: PARVEEN PEDROZA SEX: M ORDER DR: Page 1 of 1 COPY
--- NOTE | ~2017-03-10 | HP ---
Unit #: [id number] #: [id number] Patient: DANIEL MOCK [id number] [facility]. [place], [place] [address] [id number] I MR#: [id number] NAME: DANIEL MOCK ROOM: [address] Age: 66 Sex: M Admission Date: 03/11/2017 : 1950 Attending Physician: Parveen Pedroza M.D. Primary Care Physician: Ankush Castorena M.D. HISTORY AND PHYSICAL CHIEF COMPLAINT Fluid retention and shortness of breath. PRIMARY CARE Dr. Ankush Castorena HISTORY OF PRESENT ILLNESS The patient is a 66-year-old -[place] male that was just hospitalized here from 03/03/2017 through 03/05/2017 with exacerbation of systolic congestive heart failure. He was diuresed and feeling better and was discharged home six days ago. His weight on admission was 226 pounds, decreased to 214 pounds on discharge. He returns last evening with a complaint of shortness of breath over the last two days. This was especially noticeable with exertion. He was having some orthopnea issues. He states that after being discharged he hast been having some cold cuts and [employer] sandwiches. He states that he has not been monitoring his salt intake. Currently during my interview he is not complaining of any issues, except for feeling cold. This information is from patient interview, as well as from record review. Prior cardiac testing history includes 2D echocardiogram on 03/04/2017 that showed ejection fraction of 15% to 20% with mild to moderately dilated left atrium. Moderately dilated right ventricle. Mild mitral regurgitation and mild to moderate tricuspid regurgitation. Right ventricular systolic pressure of 43 mmHg. PAST MEDICAL HISTORY 1. Ischemic cardiomyopathy with an ejection fraction of 15% to 20%. 2. Medtronic cardioverter defibrillator placed in 2003. 3. CVA/TIA in 2001 on chronic Coumadin therapy. 4. Chronic systolic congestive heart failure. 5. Hypertension. 6. Hyperlipidemia. 7. Diabetes type 2. 8. Gastroesophageal reflux disease. 9. Atrial fibrillation. 10. Carotid stenosis with history of right CEA. 11. Hernia repair. ALLERGIES No known drug allergies. HOME MEDICATIONS 1. Glucophage 1,000 mg twice daily. Unit #: [id number] #: [id number] Patient: DANIEL MOCK 2. Neurontin 1200 mg 3 times a day. 3. Synthroid 0.2 mg daily. 4. Glipizide 5 mg daily. 5. Amitriptyline 25 mg daily. 6. Aldactone 12.5 mg daily. 7. Iron sulfate 325 mg 3 times day. 8. Coumadin 4 mg daily. 9. Zoloft 50 mg daily. 10. Prilosec 40 mg twice daily. 11. Lipitor 10 mg daily. 12. Bumex 1 mg twice daily. 13. Entresto twice daily. SOCIAL HISTORY He does not use tobacco, alcohol, or illicit drugs. He retired in 2006 from the [employer]. He states that when he was in [place] he did use marijuana in the remote history. FAMILY HISTORY His father had a myocardial infarction and at age 57. REVIEW OF SYSTEMS GENERAL: Currently he feels as though he has "head cold." Denied any fever or chills, flu-like symptoms or unintentional weight loss. SKIN: Denies any rashes, ulcerations or wounds. HEENT: Headache. Eyes - blurred vision at times. Ears - denied any change in hearing. Throat - denied any problems with swallowing. HEME: Denies epistaxis, hemoptysis, hematuria, or melena. LUNGS: Positive for wheeze, cough, or shortness of breath. CHEST: Denies any pain, palpitations or tachycardia, but is positive for PND and/or orthopnea. GI: Denies any nausea or vomiting. Has had diarrhea for the last three days. : Denies any burning or urgency. EXTREMITIES: Denies any swelling or increased pain with walking. SPINE: He has chronic back pain. NEUROLOGIC: No numbness, tingling, seizures. No question of dizziness, but is unsteady and uses a cane or walker and states that he fell the Tuesday before [place] this year. He states that he does get out and does anything he wants to do. He drives and is able to walk around and do his own shopping. PHYSICAL EXAMINATION VITAL SIGNS: Blood pressure is 145/93, heart rate 104, respirations 16, temperature 98.2, 221 pounds. GENERAL: Well developed, well nourished -[place] male in no acute distress. Sitting on the side of the bed. SKIN: No obvious rashes or ulcerations noted. HEENT: Eyes - PERRLA. No xanthelasma. Oral - good dentition. Moist mucous membranes. No pallor. NECK: No carotid bruits auscultated bilaterally. SPINE: No scoliosis. CHEST: Diminished bilateral posterior bases, otherwise clear. CARDIAC: S1 and S2. No murmur, rub, gallop or lift. ABDOMEN: Soft, nontender. Positive bowel sounds. EXTREMITIES: Bilateral pedal pulses +2, bilateral lower extremity 2+ edema. NEUROLOGICAL: Alert and oriented x3. Speech is clear. No obvious neuro Unit #: [id number] #: [id number] Patient: DANIEL MOCK. DIAGNOSTIC STUDIES CURRENT LABS/TESTS: Sodium 136, potassium 4.4, glucose 147, BUN 16, creatinine 0.9. Hemoglobin 11.4, hematocrit 36.7, platelets 312, and white blood cell 7.1. Troponin 0.06 and prior to that was less than 0.05. BNP 1,590. PT 12.9, INR 1.2. IMPRESSION 1. Acute on chronic systolic congestive heart failure with a known ejection fraction of 15% to 20%. 2. Ischemic cardiomyopathy. 3. Sick sinus syndrome with history of automatic implantable cardioverter defibrillator. 4. Hypertension. 5. Hyperlipidemia. 6. Peripheral vascular disease with history of right carotid endarterectomy. 7. Right carotid endarterectomy. 8. Diabetes. 9. Gastroesophageal reflux disease. PLAN We will augment Bumex with potassium replacement, at a low sodium diet with fluid restriction. We will follow progress. Currently his weight is 221 pounds. We will follow daily weights and make further recommendations based on progress. Dictated by Jaden DockeryP.R.N. for Ravi Gallagher M.D. KRISTEN/troy TD: 03/11/2017 12:01 JOB #: [id number] HISTORY AND PHYSICAL Page 1 of 1 X X HISTORY AND PHYSICAL
[~2017-03-10 23:07] MED LIST changes: +AMITRIPTYLINE H25 MG PO; +BUMEX1 MG PO; +COZAAR25 MG PO; +GLUCOPHAGE500 MG PO; +GLUCOTROL PO; +IRON325 MG PO; +LIPITOR PO; +NEURONTIN600 MG PO; +PRILOSEC PO; +SIMVASTATIN40 MG PO; +SYNTHROID0.2 MG PO; +ZOLOFT50 MG PO
[2017-03-11 02:06] LABS: POC - CKMB 6.3 ng/mL (0.0-7.9); POC - TROPONIN <0.05 ng/mL (<=0.05)
[2017-03-11 02:24] LABS: BASOPHIL# 0.1 X10e3 (0-0.3); EOSINOPHIL# 0.3 X10e3 (0-0.7); EOSINOPHIL% 3.1 % (0.0-7.0); HEMATOCRIT 37.9 % (38.0-50.0); HEMOGLOBIN 11.7 gm/dL (13.0-16.0); LYMPHOCYTE# 2.3 X10e3 (1.0-3.5); LYMPHOCYTE% 26.9 % (17.0-45.0); MEAN CELL VOLUME 69.4 FL (83-96); MEAN CORPUSCULAR HEMOGLOBIN 21.5 PG (28-34); MEAN CORPUSCULAR HGB CONC 30.9 g/dL (30-36); MEAN PLATELET VOLUME 8.8 FL (6.5-11.5); MONOCYTE# 0.7 X10e3 (0-1.0); MONOCYTE% 7.9 % (3.0-12.0); NEUTROPHIL# 5.1 X10e3 (1.5-7.1); NEUTROPHIL% 61.1 % (40-75); PLATELET COUNT 332 X10e3 (140-420); RED BLOOD COUNT 5.46 X10e (3.90-5.60); RED CELL DISTRIBUTION WIDTH 16.7 % (11.0-15.5); WHITE BLOOD COUNT 8.4 X10e3 (4.0-10.5)
[2017-03-11 02:28] LABS: DIFF IND NO
[2017-03-11 02:39] LABS: INR 1.2; PARTIAL THROMBOPLASTIN TIME 30.3 SECONDS (23.5-31.3); PROTHROMBIN TIME (PATIENT) 12.9 SECONDS (9.6-11.5)
[2017-03-11 02:43] LABS: ALBUMIN SERUM 4.5 g/dL (3.5-5.0); BILIRUBIN, DIRECT 0.1 mg/dL (0.0-0.2); BILIRUBIN,INDIRECT 0.3 mg/dL (0.0-0.9); BILIRUBIN,TOTAL 0.4 mg/dL (0.2-2.0); BUN/CREATININE RATIO 15.45; CALCIUM SERUM 9.6 mg/dL (8.4-10.2); CREATININE SERUM 1.1 mg/dL (0.6-1.4); GLOM FILT RATE Estimated 80.1 mL/min (>60); POTASSIUM 4.6 mmol/L (3.5-5.1); PROTEIN TOTAL SERUM 8.4 g/dL (6.0-8.3)
[2017-03-11 03:52] LABS: POC - CKMB 1.1 ng/mL (0.0-7.9); POC - TROPONIN 0.06 ng/mL (<=0.05)
[2017-03-11 06:39] LABS: BASOPHIL# 0.1 X10e3 (0-0.3); BASOPHIL% 1.1 % (0-2.5); DIFF IND NO; EOSINOPHIL# 0.3 X10e3 (0-0.7); EOSINOPHIL% 3.4 % (0.0-7.0); HEMATOCRIT 36.7 % (38.0-50.0); HEMOGLOBIN 11.4 gm/dL (13.0-16.0); LYMPHOCYTE# 1.8 X10e3 (1.0-3.5); LYMPHOCYTE% 23.8 % (17.0-45.0); MEAN CELL VOLUME 69.3 FL (83-96); MEAN CORPUSCULAR HEMOGLOBIN 21.5 PG (28-34); MEAN PLATELET VOLUME 8.8 FL (6.5-11.5); MONOCYTE# 0.8 X10e3 (0-1.0); MONOCYTE% 10.6 % (3.0-12.0); NEUTROPHIL# 4.8 X10e3 (1.5-7.1); NEUTROPHIL% 61.1 % (40-75); PLATELET COUNT 312 X10e3 (140-420); RED CELL DISTRIBUTION WIDTH 16.3 % (11.0-15.5); WHITE BLOOD COUNT 7.8 X10e3 (4.0-10.5)
[2017-03-11 06:59] LABS: BUN/CREATININE RATIO 17.77; CALCIUM SERUM 9.3 mg/dL (8.4-10.2); CREATININE SERUM 0.9 mg/dL (0.6-1.4); GLOM FILT RATE Estimated 102.1 mL/min (>60); POTASSIUM 4.4 mmol/L (3.5-5.1)
[2017-03-11 19:24] LABS: ARTERIAL BLD GAS O2 SATURATION 94.3 % (90.0-100.0); ARTERIAL BLOOD GAS CARBOXY HB 1.2 %sat (0.0-9.0); ARTERIAL BLOOD GAS HCO3 27.9 mmol/L; ARTERIAL BLOOD GAS MET HB 0.8 %sat (0.0-2.0); ARTERIAL BLOOD GAS PCO2 46.5 mmHg (35.0-45.0); ARTERIAL BLOOD GAS PO2 71.1 mmHg (80.0-100); ARTERIAL BLOOD GAS pH 7.386 (7.350-7.450)
[2017-03-11 19:25] LABS: ARTERIAL BLOOD GAS ALLEN TEST NORMAL; ARTERIAL BLOOD GAS ART SITE RIGHT RADIAL; ARTERIAL BLOOD GAS DELIVERY NASAL CANNULA; ARTERIAL DRAW? YES
[2017-03-11 21:20] LABS: ALBUMIN SERUM 3.7 g/dL (3.5-5.0); BILIRUBIN, DIRECT 0.2 mg/dL (0.0-0.2); BILIRUBIN,INDIRECT 0.5 mg/dL (0.0-0.9); BILIRUBIN,TOTAL 0.7 mg/dL (0.2-2.0); PROTEIN TOTAL SERUM 6.8 g/dL (6.0-8.3)
[2017-03-11 21:27] LABS: AMPHETAMINE NEG (NEG); BARBITURATES NEG (NEG); BENZODIAZEPINES NEG (NEG); COCAINE NEG (NEG); MARIJUANA NEG (NEG); OPIATES NEG (NEG); TRICYCLIC ANTIDEPRESSANTS NEG (NEG); U METHADONE NEG (NEG)
[2017-03-12 08:50] LABS: GLOM FILT RATE Estimated 89.9 mL/min (>60); MAGNESIUM 1.7 mg/dL (1.6-3.0); POTASSIUM 4.1 mmol/L (3.5-5.1)
[2017-03-13 06:42] LABS: INR 1.1; PROTHROMBIN TIME (PATIENT) 11.4 SECONDS (9.6-11.5)
[2017-03-13 06:53] LABS: HEMATOCRIT 41.8 % (38.0-50.0); MEAN CELL VOLUME 68.6 FL (83-96); MEAN CORPUSCULAR HEMOGLOBIN 21.3 PG (28-34); MEAN PLATELET VOLUME 8.6 FL (6.5-11.5); RED BLOOD COUNT 6.09 X10e (3.90-5.60); RED CELL DISTRIBUTION WIDTH 16.3 % (11.0-15.5)
[2017-03-13 07:31] LABS: BUN/CREATININE RATIO 18.18; CALCIUM SERUM 8.7 mg/dL (8.4-10.2); CREATININE SERUM 1.1 mg/dL (0.6-1.4); GLOM FILT RATE Estimated 80.1 mL/min (>60); MAGNESIUM 2.1 mg/dL (1.6-3.0); POTASSIUM 4.8 mmol/L (3.5-5.1)
[2017-03-14 05:14] LABS: HEMATOCRIT 39.7 % (38.0-50.0); HEMOGLOBIN 12.4 gm/dL (13.0-16.0); MEAN CELL VOLUME 68.1 FL (83-96); MEAN CORPUSCULAR HEMOGLOBIN 21.3 PG (28-34); MEAN CORPUSCULAR HGB CONC 31.2 g/dL (30-36); RED BLOOD COUNT 5.83 X10e (3.90-5.60); RED CELL DISTRIBUTION WIDTH 16.2 % (11.0-15.5); WHITE BLOOD COUNT 7.7 X10e3 (4.0-10.5)
[2017-03-14 05:23] LABS: INR 1.1; PROTHROMBIN TIME (PATIENT) 11.6 SECONDS (9.6-11.5)
[2017-03-14 05:50] LABS: BUN/CREATININE RATIO 20.83; CALCIUM SERUM 8.1 mg/dL (8.4-10.2); CREATININE SERUM 1.2 mg/dL (0.6-1.4); GLOM FILT RATE Estimated 72.1 mL/min (>60); MAGNESIUM 1.9 mg/dL (1.6-3.0); POTASSIUM 4.4 mmol/L (3.5-5.1)
[2017-03-14 14:24] LABS: BUN/CREATININE RATIO 17.33; CALCIUM SERUM 8.9 mg/dL (8.4-10.2); CREATININE SERUM 1.5 mg/dL (0.6-1.4); GLOM FILT RATE Estimated 55.1 mL/min (>60); POTASSIUM 5.2 mmol/L (3.5-5.1)
[2017-03-15 09:02] LABS: INR 1.2; PROTHROMBIN TIME (PATIENT) 13.2 SECONDS (9.6-11.5)
[2017-03-15 09:28] LABS: BUN/CREATININE RATIO 17.69; CALCIUM SERUM 8.8 mg/dL (8.4-10.2); CREATININE SERUM 1.3 mg/dL (0.6-1.4); GLOM FILT RATE Estimated 65.5 mL/min (>60); MAGNESIUM 1.9 mg/dL (1.6-3.0); POTASSIUM 4.3 mmol/L (3.5-5.1)
[2017-03-15] MEDS ORDERED: BUMEX2 MG PO (11:26)
[2017-03-15] MEDS ORDERED: WARFARIN SODIU7.5 MG PO (11:27)
[2017-03-15] MEDS ORDERED: COUMADIN5 MG PO (11:28)
[2017-03-15] MEDS ORDERED: ALDACTONE25 MG PO (11:29)
[2017-03-15] MEDS ORDERED: COREG6.25 M1 PO (11:30)
[2017-03-15] MEDS ORDERED: K-DUR20 ME1 PO (11:32)
== END 2017-03-15 13:05 | disposition home or self-care (01) | DRG 292 ==
LOC: CED 23:07 → CEDOF 03-11 04:46 → C3A PCU 03-11 05:11 → CEDOF 03-11 05:11 → C3A PCU 03-11 05:11 → CED 03-11 05:11 → C3A PCU 03-11 16:28 → CEDOF 03-11 16:28 → C3A PCU 03-11 16:28
PROVIDERS: Emergency Medicine; Internal Medicine Clinical Cardiac Electrophysiology; Internal Medicine Pulmonary Disease; Nurse Practitioner
DX: I11.0 Hypertensive heart disease with heart failure (principal); N17.9 Acute kidney failure, unspecified; Z79.01 Long term (current) use of anticoagulants; I73.9 Peripheral vascular disease, unspecified; E11.9 Type 2 diabetes mellitus without complications; I50.23 Acute on chronic systolic (congestive) heart failure; K21.9 Gastro-esophageal reflux disease without esophagitis; I25.5 Ischemic cardiomyopathy; Z95.810 Presence of automatic (implantable) cardiac defibrillator; Z86.73 Personal history of transient ischemic attack (TIA), and cerebral infarction without residual deficits; Z79.84 Long term (current) use of oral hypoglycemic drugs; E78.5 Hyperlipidemia, unspecified; I34.0 Nonrheumatic mitral (valve) insufficiency; G47.33 Obstructive sleep apnea (adult) (pediatric); I25.10 Atherosclerotic heart disease of native coronary artery without angina pectoris
CPT/HCPCS: 36415; 36600; 71020; 73600; 73620; 80048; 80076; 80307; 82140; 82553; 82803; 82947; 83735; 83880; 84484; 85025; 85027; 85610; 85730; 94660; 94760; 94762; 99285; J1650; J1815; J1940; J3475